=== PATIENT | female | born 1965 | race Caucasian/White ===

== ENCOUNTER 2019-07-29 14:14 | Emergency (ER) | payer OTHER ==
[2019-07-29 14:31] VITALS: BP 148/97; TEMP 99.8; BMI 34.3
--- NOTE | 2019-07-29 14:44 | PDOC ---
History of Present Illness - General Chief Complaint: Respiratory Stated Complaint: COUGH, WHITTAKER, VOMIT Time Seen by Provider: 07/29/19 14:19 History Source: Patient Exam Limitations: No Limitations - History of Present Illness Initial Comments: HPI: 54 y/o female presenting to [facility] complaining of fevers, chills, diffuse headache, non-productive cough, diffuse body aches, and left flank pain for the past several days. TMax of 102.4. Tolerating PO. Left flank pain described as diffuse and nonmigratory. Reports multiple episodes of nonbloody, nonbilious vomiting over the past two days. Denies SOB, chest pain, abdominal pain, or diarrhea. Denies difficulty urinating, hematuria, dysuria, or increased frequency. Denies heavy lifting or trauma to left flank. Pt has a h/o migraines on multiple medications. Last Aimovig injection was last Sunday. States pain is not similar to her migraines. No known sick contacts. No recent abx usage. No recent international travel. Medical Hx: - Migraines - Asthma - Recurrent nephrolithiasis s/p bilateral stenting at [facility] in 1999 (not indwelling) Surgical Hx: - Thymoma - - Tonsillectomy - Appendectomy - Hysterectomy Review of Systems: 10 point review of systems completed. All systems negative except as noted above. Physical Examination: Vital signs and nursing notes reviewed. Constitutional- Well-developed, well-nourished adult female in no acute distress or obvious discomfort. Observed ambulating unassisted through the department without obvious difficulty. Found semi-fowlers on hospital bed. Answered all questions appropriately and completely. Head- Normocephalic. No obvious external signs of trauma. Eyes- Sclerae white. Ears- External auditory canals and tympanic membranes pearly wilson. Hearing grossly intact. Nose- No nasal discharge. Throat- Oral cavity and pharynx normal. No inflammation, swelling, exudate, or lesions. Teeth and gingiva in good general condition. Neck- Supple, trachea is midline. Cardiovascular / Chest- Borderline tachycardic rate with regular rhythm. No murmur, rubs, clicks, or gallops. Peripheral pulses- radial pulses full. No tenderness to anterior chest wall. Respiratory- Breathing unlabored. Equal chest rise and fall. Clear to auscultation bilaterally. No stridor, no wheezing, no rhonchi. Gastrointestinal- Diffuse left flank pain without point tenderness or overlying skin changes. Globally, abdomen is soft and non-distended. No pulsatile masses. No overlying skin lesions or obvious signs of trauma. Able to transition from semi-fowlers to fowlers position without obvious discomfort. Neuro- Alert and oriented x4. Moving all four extremities spontaneously. Skin- Warm, dry, and intact. No bruising, rashes, or other lesions. - No R or L CVA tenderness. Psych- Affect- appropriate. Mood- normal. Speech was non-labored, non- pressured. Past History - Past Medical History Allergies/Adverse Reactions: Allergies Allergy/AdvReac Type Severity Reaction Status Date / Time No Known Allergies Allergy Verified 07/29/19 14:16 Home Medications: Ambulatory Orders Acetaminophen [Tylenol -] 1,000 mg PO Q6H PRN 07/29/19 Amitriptyline HCl 25 mg PO HS 07/29/19 Diclofenac Sodium [Diclofenac Sodium ER] 50 mg PO HS 07/29/19 Lisinopril mg PO DAILY 07/29/19 Metoprolol Succinate [Toprol Xl] 25 mg PO DAILY 07/29/19 COPD: No HTN: Yes Other medical history: migraine headaches - Surgical History Appendectomy: Yes - Psycho Social/Smoking Cessation Hx Smoking History: Never smoked Have you smoked in the past 12 months: No Information on smoking cessation initiated: No Hx Alcohol Use: No *Physical Exam - Vital Signs Last Vital Signs Temp Pulse Resp BP Pulse Ox 99.8 F H 104 H 20 148/97 97 07/29/19 14:14 07/29/19 14:14 07/29/19 14:14 07/29/19 14:14 07/29/19 14:14 ED Treatment Course - LABORATORY CBC & Chemistry Diagram: 07/29/19 15:10 07/29/19 15:10 Discharge - Discharge Information Problems reviewed: Yes Clinical Impression/Diagnosis: Cough, Generalized body aches, Left flank pain Headache Qualifiers: Headache type: unspecified Headache chronicity pattern: acute headache Intractability: not intractable Qualified Code(s): R51 - Headache Condition: Improved Disposition: HOME - Admission No - Follow up/Referral Referrals: Phyllis Castaneda MD [Primary Care Provider] - - Patient Discharge Instructions Patient Printed Discharge Instructions: DI for Cough -- Adult, DI for Fever ( Symptom) -- Adult, DI for Viral Syndrome Additional Instructions: You were seen today for fevers, chills, headache, cough, body aches, and left flank pain. Your xrays and labs were normal today. You likely have a viral upper respiratory infection. You may continue to feel sick for the next few days. Be sure to stay well hydrated! You can take over the counter Tylenol or Advil as needed for pain. Take as directed on the package insert. Do not exceed the recommended dosage. Follow up with your primary care doctor in the next week or as needed. You will need to call to make an appointment. A copy of todays results are attached to this packet. Take it with you so your doctor can review them. Go to the nearest emergency department if your condition worsens or you feel like you need additional emergency evaluation. Print Language: [id number] - Post Discharge Activity Work/Back to School Note: Back to Work
[2019-07-29] MEDS ORDERED: LACTATED RINGERS SOLUTION 1000 ML INFUS.BAG IV ONE (15:00)
[2019-07-29] MEDS ORDERED: ONDANSETRON 4 MG/2 ML VIAL IVPUSH ONE (15:00)
[2019-07-29] MEDS ORDERED: ONDANSETRON 4 MG/2 ML VIAL ONE (15:20)
[2019-07-29 15:37] LABS: WHITE BLOOD COUNT 7.4 K/mm3 (4.0-10.8)
[2019-07-29 15:40] LABS: HEMATOCRIT 42.9 % (32.4-45.2); HEMOGLOBIN 14.4 GM/dl (10.7-15.3); MCH 30.1 pg (25.7-33.7); MCHC 33.6 g/dl (32.0-36.0); MEAN CELL VOLUME 89.5 fl (80-96); MEAN PLT VOLUME 9.4 fl (7.5-11.1); PLATELET COUNT 212 K/MM3 (134-434); RDW 12.7 % (11.6-15.6)
[2019-07-29 15:44] LABS: ALBUMIN 4.1 g/dl (3.4-5.0); BILIRUBIN,TOTAL 1.2 mg/dl (0.2-1); CALCIUM 8.7 mg/dl (8.5-10); CREATININE 0.9 mg/dl (0.55-1.3); POTASSIUM 3.6 mmol/L (3.5-5.1); TOT PROT 7.9 g/dl (6.4-8.2)
[2019-07-29] MEDS ORDERED: KETOROLAC TROMETHAMINE 30 MG/1 ML VIAL IVPUSH ONE (16:30)
[2019-07-29] MEDS ORDERED: KETOROLAC TROMETHAMINE 30 MG/1 ML VIAL ONE (16:34)
--- NOTE | 2019-07-29 16:36 | PDOC ---
Attending Attestation - Resident Resident Name: Yonny Rhodes - ED Attending Attestation I have performed the following: I have examined & evaluated the patient, The case was reviewed & discussed with the resident, I agree w/resident's findings & plan - HPI HPI: 07/29/19 16:33 54-year-old female with history of hypertension, kidney stones requiring stents in the past status post removal of stents, presents now with 3 days of left mid back discomfort and 2 to 3 days of URI symptoms with fever/chills. Patient initially noted atraumatic left mid back discomfort without associated urinary or pulmonary complaints, seems musculoskeletal in her opinion. Over the last 2 to 3 days, patient has developed nasal congestion with dry cough and fever as high as 102, relieved with Tylenol, but persistent so she presents for evaluation. No flu vaccine, no known sick contacts, no chest pain, no other complaints. - Physicial Exam PE: 07/29/19 16:34 Low-grade temp 99.8 on triage, slight associated tachycardia, O2 sat normal, blood pressure normal Well-appearing seated in stretcher and ambulating in the emergency department, speaking full sentences without distress Oropharynx clear, moist mucosa Neck supple, no JVD Heart is regular, lungs are clear without focally decreased breath sounds or wheezing/crackles Abdomen benign, no CVA tenderness No rash - Medical Decision Making 07/29/19 16:35 54-year-old female with hypertension presents with 2 to 3 days of URI symptoms with fever and myalgia, influenza-like illness. Nonreproducible mid back pain could be muscle strain from cough, rule out pneumonia, rule out UTI/renal colic. Labs are within normal limits, urinalysis without evidence of blood or infection EKG nonischemic Chest x-ray Received IV fluids, trial of Toradol for fever and aches Reassess and disposition accordingly Heart Score/ECG Review #1 ECG reviewed & interpreted by me at: 15:50 General ECG Interpretation: Sinus Rhythm, Normal Rate (93), Normal Intervals ( qtc 435), No acute ischemic changes
[2019-07-29 17:09] LABS: CALCIUM OXALATE CRYSTALS MODERATE /hpf (NONE SEEN); EPITHELIAL CELLS FEW /hpf
[2019-07-29 17:22] LABS: PLATELET ESTIMATE ADEQUATE
[2019-07-29 18:01] VITALS: PULSE 89
--- NOTE | 2019-07-30 11:12 | EKG ---
Test Reason : Blood Pressure : / mmHG Vent. Rate : 093 BPM Atrial Rate : 093 BPM P-R Int : 148 ms QRS Dur : 086 ms QT Int : 350 ms P-R-T Axes : 060 021 021 degrees QTc Int : 435 ms NORMAL SINUS RHYTHM POSSIBLE LEFT ATRIAL ENLARGEMENT BORDERLINE ECG NO PREVIOUS ECGS AVAILABLE Confirmed by JENNIFER BABB MD ([id number]) on 07/30/2019 11:12:18 AM Referred By: BREONNA MONTALVO Confirmed By:JENNIFER BABB MD
== END 2019-07-29 18:00 | disposition home or self-care (01) ==
LOC: FER 14:14
PROC: 3E0F7GC Introduction of Other Therapeutic Substance into Respiratory Tract, Via Natural or Artificial Opening (ICD-10-PCS; principal; 2019-07-29)
DX: R51 Headache (principal); I10 Essential (primary) hypertension
CPT/HCPCS: 36415; 71046-TC-FY; 80053; 81003; 81015; 84703; 85025; 87086; 93005; 96374; 96375; 99285-25

== ENCOUNTER 2022-08-10 18:55 | Emergency (ER) | payer OTHER ==
[2022-08-10] MEDS ORDERED: METHOCARBAMOL 500 MG TABLET PO ONE (19:17)
[2022-08-10] MEDS ORDERED: ACETAMINOPHEN 325 MG TABLET (FP) PO ONE (19:17)
[2022-08-10] MEDS ORDERED: KETOROLAC TROMETHAMINE 30 MG/1 ML VIAL IM ONE (19:17)
[2022-08-10] MEDS ORDERED: LIDOCAINE 5% TOPICAL PATCH TP ONE (19:18)
[2022-08-10] MEDS ORDERED: METHOCARBAMOL 500 MG TABLET ONE (19:21)
[2022-08-10] MEDS ORDERED: LIDOCAINE 5% TOPICAL PATCH ONE (19:21)
[2022-08-10] MEDS ORDERED: KETOROLAC TROMETHAMINE 30 MG/1 ML VIAL ONE (19:21)
[2022-08-10] MEDS ORDERED: ACETAMINOPHEN 500 MG TABLET (FP) ONE (19:21)
[2022-08-10 20:01] VITALS: BP 170/100; PULSE 82; RESP 20; TEMP 98; BMI 32.2
[2022-08-10 20:09] LABS: CALCIUM OXALATE CRYSTALS FEW /hpf (NONE SEEN); EPITHELIAL CELLS FEW /hpf
[2022-08-10] MEDS ORDERED: diazePAM 5 MG TABLET PO ONE (20:33)
[2022-08-10] MEDS ORDERED: diazePAM 5 MG TABLET ONE (20:43)
[2022-08-10] MEDS ORDERED: LIDOCAINE PATCH REMOVAL MC SCH (22:00)
== END 2022-08-10 22:23 | disposition home or self-care (01) ==
LOC: FER 18:55
PROC: 3E0233Z Introduction of Anti-inflammatory into Muscle, Percutaneous Approach (ICD-10-PCS; principal; 2022-08-10)
DX: R10.84 Generalized abdominal pain (principal)
CPT/HCPCS: 74176-TC; 81003; 81015; 96372; 99284-25